=== PATIENT | male | born 1960 | race Caucasian/White ===

== ENCOUNTER 2016-09-27 00:12 | Emergency (ER) | payer SELFPAY ==
[2016-09-27] MEDS ORDERED: KETOROLAC TROMETHAMINE 30 MG/1ML VIAL ONE (00:19)
[2016-09-27] MEDS ORDERED: 0.9 % SODIUM CHLORIDE 1,000 ML IV ONE (00:20)
[2016-09-27] MEDS ORDERED: NORMAL SALINE 500 ML IV.SOLN IV SCH (00:30)
[2016-09-27] MEDS: KETOROLAC TROMETHAMINE 30 MG/1ML VIAL IVP ONE (00:30)
[2016-09-27] MEDS: ONDANSETRON HCL/PF 4 MG/ 2ML VIAL IVP ONE (00:30)
[2016-09-27 00:35] LABS: EOSINOPHILS % 3.4 % (0.0-6.8); MEAN CORPUSCULAR VOLUME 96.4 fl (80.0-100.0); MONOCYTES % 9.3 % (0.0-11.0); NEUTROPHILS # 3.4 # k/uL (1.4-7.7)
[2016-09-27 00:51] LABS: eGFR (African) > 60; eGFR (Non-African) > 60
[2016-09-27] MEDS ORDERED: TAMSULOSIN HCL 0.4 MG CAP.ER.24H PO ONE (03:40)
[2016-09-27] MEDS: fentaNYL CITRATE/PF 100 MCG/ 2ML AMP IVP ONE (04:00)
[2016-09-27] MEDS: TAMSULOSIN HCL 0.4 MG CAP.ER.24H PO ONE (04:01)
[2016-09-27 04:10] VITALS: BP 138/72
--- NOTE | 2016-09-27 04:32 | ED Physician Documentation ---
GI Bleed - HISTORIAN Historian: patient - HPI Chief Complaint: Flank Pain Additional Information: 56 YO M who present with left lower abdominal pain that started about 2 days ago. Pt has been seen in another ED in [place] where he was diagnosed with kidney stone. He was kept in the ED for 4 hours he says and given ivf and pain medication. Pt could not get comfortable during the exam. He denies noticing any blood in his urine nor increase frequency. - Associated Symptoms Abdominal Pain: RLQ - ROS CONST: no problems CVS/RESP: none MS: none - PAST HX Past History: other (none) Allergies/Adverse Reactions: Allergies Allergy/AdvReac Type Severity Reaction Status Date / Time bee venom (honey bee) Allergy Verified 09/27/16 00:33 Penicillins Allergy Verified 09/27/16 00:33 Home Medications: Ambulatory Orders Medication Instructions Recorded NK [NK] 09/27/16 - SOCIAL HX Smoking History: cigarettes - FAMILY HX Family History: none - VITAL SIGNS Vital Signs: Vital Signs Temp Pulse Resp BP Pulse Ox 82 16 138/72 98 09/27/16 04:03 09/27/16 04:03 09/27/16 04:03 09/27/16 04:03 - REVIEWED ASSESSMENTS Nursing Assessment Reviewed: Yes Vitals Reviewed: Yes Progress - Progress Progress: LLQ and renal pain-- recent diagnosis with left renal stone-- will go ahead and start ivf ns + toradol + Zofran and check routine cbc anc cmp-- I reviewed the CT abd/pel brought from outside hospital that shows bilateral renal stone but noting in the ureter-- pt well hydrated and given pain medication and antiemetic -- reports improvement in symptoms and ready to be discharged to close followup with his primary doctor -- tachycardia resolved with ivf hydration also noted with slightly elevated AST/ALT-- acute hepatitis panel pending during discharge-- ED Results Lab/Radiology - Lab Results Lab Results: Lab Results 09/27/16 09/27/16 00:30 00:30 WBC 6.80 K/ul K/ul (4.00-12.00) RBC 4.55 M/ul M/ul (3.90-5.20) Hgb 15.5 g/dL g/dL (12.0-18.0) Hct 43.8 % % (37.0-53.0) MCV 96.4 fl fl (80.0-100.0) MCH 34.0 pg pg (28.0-34.0) MCHC 35.3 g/dL g/dL (30.0-36.0) RDW 13.0 % % (11.3-14.3) Plt Count 159 K/mm3 K/mm3 (130-400) Neut % (Auto) 50.5 % % (39.0-79.0) Lymph % (Auto) 32.9 % % (16.0-50.0) Hawkins % (Auto) 9.3 % % (0.0-11.0) Eos % (Auto) 3.4 % % (0.0-6.8) Baso % (Auto) 1.0 (0.0-1.5) Neut # (Auto) 3.4 # k/uL # k/uL (1.4-7.7) Lymph # (Auto) 2.2 # k/uL # k/uL (0.6-4.0) Hawkins # (Auto) 0.6 # k/uL # k/uL (0.0-0.9) Eos # (Auto) 0.2 # k/uL # k/uL (0.0-0.6) Baso # (Auto) 0.1 # k/uL # k/uL (0.0-0.5) Reactive Lymphs % 2.8 % % (0.0-5.0) Reactive Lymphs # 0.2 # k/uL # k/uL (0.0-0.8) Sodium 140 mmol/L mmol/L (136-145) Potassium 3.7 mmol/L mmol/L (3.5-5.0) Chloride 111 mmol/L H mmol/L (98-110) Carbon Dioxide 33 mmol/L H mmol/L (20-32) BUN 15 mg/dL mg/dL (10-26) Creatinine 0.9 mg/dL mg/dL (0.4-1.5) Estimated Creat Clear 109 Est GFR ( Amer) > 60 (60 - ) Est GFR (Non-Af Amer) > 60 (60 - ) Glucose 99 mg/dL mg/dL (70-99) Calcium 9.6 mg/dL mg/dL (8.5-10.5) Total Bilirubin 1.1 mg/dL mg/dL (0.2-1.2) AST 64 U/L H U/L (0-41) ALT 94 U/L H U/L (0-45) Alkaline Phosphatase 99 U/L U/L (46-116) Total Protein 7.6 g/dL g/dL (6.0-8.5) Albumin 4.2 g/dL g/dL (3.0-5.5) - Orders Orders: ED Orders Category Date Time Status Place IV Lock 1T Care 09/27/16 01:03 Active CBC/PLATELET/DIFF Routine Lab 09/27/16 00:30 Completed CMP [CMP] Routine Lab 09/27/16 00:30 Completed HEPATITIS PANEL-ACUTE Routine Lab 09/27/16 03:45 Received 0.9 % Sodium Chloride [Normal Saline] Med 09/27/16 00:30 Ordered 1,000 ml IV DIRECTED 0.9 % Sodium Chloride [Normal Saline] 1,000 ml Med 09/27/16 00:20 Discontinued IV .STK-MED Ketorolac Tromethamine [Toradol] Med 09/27/16 00:19 Discontinued 30 mg .ROUTE .STK-MED ONE Ketorolac Tromethamine [Toradol] Med 09/27/16 00:20 Discontinued 30 mg IVP NOW ONE Ondansetron HCl/Pf [Zofran 4 mg/2 ml] Med 09/27/16 00:21 Discontinued 4 mg IVP NOW ONE Tamsulosin HCl [Flomax] Med 09/27/16 03:40 Discontinued 0.4 mg PO .STK-MED ONE Tamsulosin HCl [Flomax] Med 09/27/16 04:00 Discontinued 0.4 mg PO NOW ONE fentaNYL CITRATE/PF [Duragesic] Med 09/27/16 03:34 Discontinued 50 mcg IVP NOW ONE Abdominal Pain Physical Exam - Physical Exam General Appearance: mild distress (due to pain) EENT: eye inspection normal, ENT inspection normal, pharynx normal, no signs of dehydration, SARMAD, no nystagmus, TM's nml NECK: normal inspection RESPIRATORY: no resp distress, chest non-tender, breath sounds normal CVS: reg rate & rhythm, heart sounds normal, equal pulses, no murmur, no gallop , PMI nml, no JVD, no friction rub, 24 ABDOMEN: soft, no organomegaly, normal bowel sounds, no abdominal bruit, no distension, tenderness (LLQ) BACK: normal inspection, no CVA tenderness SKIN: normal color, warm/dry, NR, INT, PAL, DR EXTREMITIES: non-tender, normal range of motion, no evidence of injury, no edema , J, [employer] NEURO: oriented X3, CN's nml as tested, motor nml, sensation nml Vital Signs: Vital Signs Temp Pulse Resp BP Pulse Ox 82 16 138/72 98 09/27/16 04:03 09/27/16 04:03 09/27/16 04:03 09/27/16 04:03 Discharge Clincal Impression: Kidney stone Home Medications: Ambulatory Orders NK [NK] 09/27/16 Condition: Stable Disposition: 01 HOME, SELF-CARE Decision to Admit: NO Decision Time: 04:00
== END 2016-09-27 03:45 | disposition home or self-care (01) ==
LOC: ED 00:12
DX: N20.0 Calculus of kidney (principal)
CPT/HCPCS: 80053; 80074; 85025; J1885; J2405; J7030; 96361; 96375; 99283; S1016